=== PATIENT | male | born 1955 | race Caucasian/White ===

== ENCOUNTER 2020-05-29 06:54 | Outpatient (CLI) | payer BC ==
--- NOTE | 2020-05-29 12:14 | RAD ---
EXAM: Chest 2 views: HISTORY: Preoperative radiograph COMPARISON: None. FINDINGS: There is a normal-sized cardiomediastinal silhouette. There is no evidence of consolidation, mass, or pleural effusion. No acute osseous abnormality. IMPRESSION: No evidence of acute cardiopulmonary disease
[2020-05-29 12:48] LABS: #Eosinphils 0.1 10x3/uL (0.0-0.5); #Monocytes 0.5 10x3/uL (0.0-1.1); #Neutrophils 2.6 10x3/uL (1.5-8.4); %Basophils 0.8 % (0.0-2.0); %Eosinophils 1.2 % (0.0-6.0); %Monocytes 9.1 % (0.0-10.0); %Neutrophils 50.7 % (40.0-75.0); Hemoglobin 13.4 g/dL (14.0-18.0); Mean Corpuscular HGB CONC 33.3 G/DL (32.0-36.0); Mean Corpuscular Hemoglobin 32.5 PG (27.0-33.0); Mean Corpuscular Volume 97.6 fl (80.0-100.0); Mean Platelet Volume 9.8 fl (7.4-10.4); Platelet Count 261 10x3/uL (130-400); Red Blood Cell (RBC) Count 4.12 10x6/uL (4.40-5.80)
[2020-05-29 13:08] LABS: Anion Gap 12 mmol/L (10-20); BUN (Urea Nitrogen) 16 mg/dL (8.4-25.7); Calc. Creatinine Clearance 0 mL/min (70-130); Calcium 9.1 mg/dL (7.8-10.44); Carbon Dioxide 29 mmol/L (23-31); Chloride 105 mmol/L (98-107); Glucose 99 mg/dL (80-115); Potassium 4.6 mmol/L (3.5-5.1); Sodium 141 mmol/L (136-145)
[2020-05-30 09:25] LABS: SARS-CoV-2 MS2 Positive; SARS-CoV-2 N Gene Negative; SARS-CoV-2 S Gene Negative; SARS-CoV-2 by NAA Not Detected (NotDetected); SARS-CoV-2 orf1ab Negative
--- NOTE | 2020-05-31 07:01 | EKG ---
Test Reason : Blood Pressure : / mmHG Vent. Rate : 054 BPM Atrial Rate : 054 BPM P-R Int : 190 ms QRS Dur : 100 ms QT Int : 392 ms P-R-T Axes : 071 066 064 degrees QTc Int : 371 ms Sinus bradycardia Septal infarct , age undetermined Abnormal ECG No previous ECGs available Confirmed by DEBORAH PRASAD MD ([id number]) on 05/31/2020 7:00:55 AM Referred By: ANSON Confirmed By:DEBORAH PRASAD MD
== END 2020-05-29 06:55 | disposition home or self-care (01) ==
LOC: LABBT 06:54
PROVIDERS: ATTEND Specialist
DX: Z01.818 Encounter for other preprocedural examination (principal); Z20.828 Contact with and (suspected) exposure to other viral communicable diseases; K40.90 Unilateral inguinal hernia, without obstruction or gangrene, not specified as recurrent
CPT/HCPCS: 71046; 80048; 85025; 87635; 93005; 93010; U0003

== ENCOUNTER 2020-06-01 08:18 | Day surgery (SDC) | payer BC ==
[2020-05-31 16:06] VITALS: BMI 22.1
[2020-06-01] MEDS ORDERED: Ketorolac Tromethamine 30 MG/ML VIAL ONE (08:38)
[2020-06-01] MEDS ORDERED: Acetaminophen 500 MG TAB ONE (08:38)
[2020-06-01] MEDS ORDERED: Glycopyrrolate 0.2 MG/ML 5 ML SYRINGE ONE (09:53)
[2020-06-01] MEDS ORDERED: PROPOFOL 200 MG/20 ML VIAL ONE (09:53)
[2020-06-01] MEDS ORDERED: Ondansetron PF 4 MG/2 ML Vial ONE (09:53)
[2020-06-01] MEDS ORDERED: ePHEDrine 50 MG/ML VIAL ONE (09:53)
[2020-06-01] MEDS ORDERED: Dexamethasone 20 MG/5 ML VIAL ONE (09:53)
[2020-06-01] MEDS ORDERED: Rocuronium Bromide 10 MG/ML (10ML VIAL) ONE (09:53)
[2020-06-01] MEDS ORDERED: Lidocaine 1% PF 5 ML VIAL ONE (09:53)
[2020-06-01] MEDS ORDERED: Fentanyl 100 MCG/2 ML VIAL ONE (12:03)
[2020-06-01] MEDS ORDERED: Lidocaine 1% w/Epinephrine 1:100K 20 ML VIAL ONE (13:02)
[2020-06-01] MEDS ORDERED: Bupivacaine 0.25% HCL 30 ML VIAL ONE (13:02)
--- NOTE | 2020-06-02 13:36 | OP ---
DATE OF PROCEDURE: 06/01/2020 PREOPERATIVE DIAGNOSIS: Large right inguinal hernia. POSTOPERATIVE DIAGNOSIS: Large right inguinal hernia, indirect. PROCEDURE PERFORMED: Robotic right inguinal hernia repair with large 3DMax mesh patch. ANESTHESIA: General endotracheal. INDICATIONS FOR PROCEDURE: The patient is a 64-year-old white male. Four years ago, I performed a robotic left inguinal hernia repair from which he had an uneventful recovery. He returns at this time with an obvious right inguinal hernia. He was taken the operating room at this time for repair. DESCRIPTION OF OPERATION: Informed consent was obtained. Patient was taken to the operating room, where general endotracheal anesthesia obtained, patient in supine position. Tucker catheter was placed, abdomen was prepped with ChloraPrep and draped in sterile fashion. Local anesthetic was infiltrated using 0.25% Marcaine with epinephrine. The 3 prior laparoscopic incisions utilized at the last operation were reopened after locally anesthetizing them. Veress needle was passed through the supraumbilical incision and pneumoperitoneum was established using carbon dioxide up to a pressure of 15 mmHg. An 11 mm balloon-tipped trocar port was passed through this incision. Robotic camera was passed through the port and the 2 additional 8 mm ports were placed. The robot was docked to the 3 ports and the camera and the operation was continued from the robotic console. The left inguinal area was inspected and there was found to be no evidence of recurrent or persistent hernia. The mesh that had been placed previously was visualized through the peritoneum. In the right inguinal region, there was noted to be an obvious indirect inguinal hernia. A transverse peritoneal incision was created several centimeters superior to the hernia defect. Dissection was carried inferiorly in the preperitoneal space. The pubic tubercle and Rom's ligament were dissected on the medial aspect. The iliopubic tract was dissected on the lateral aspect. In the central portion of the dissection, the hernia sac was carefully dissected away from the cord structures and the peritoneum was widely mobilized off the underlying cord structures and the testicular vessels. Once the peritoneum had been adequately mobilized, a large 3DMax mesh patch was obtained and placed in the preperitoneal space where it was secured in place with 2 interrupted sutures of 2-0 Vicryl. One of these was placed to the pubic tubercle and one was placed to the anterior abdominal wall just lateral to the epigastric vessels. The peritoneum was then closed with a running suture of 3-0 Stratafix. There had been essentially no blood loss during the course of the operation. There were no complications. The fascial defect at the supraumbilical port site was closed with 0 Vicryl suture using a GraNee needle. All ports and instruments were removed under direct vision. Pneumoperitoneum was carefully evacuated. Additional local anesthetic was infiltrated at each port site. Skin edges approximated with 4-0 Monocryl subcuticular suture. Dermabond was placed externally. There were no complications. The patient tolerated the procedure well and was taken to recovery in stable condition. Job ID: [id number]
== END 2020-06-01 20:50 | disposition home or self-care (01) ==
LOC: SDC 08:18
PROVIDERS: ATTEND Specialist
PROC: 0YU54JZ Supplement Right Inguinal Region with Synthetic Substitute, Percutaneous Endoscopic Approach (ICD-10-PCS; principal; 2020-06-01)
DX: K40.90 Unilateral inguinal hernia, without obstruction or gangrene, not specified as recurrent (principal); E78.5 Hyperlipidemia, unspecified; Z79.899 Other long term (current) drug therapy; Z87.891 Personal history of nicotine dependence
CPT/HCPCS: C1781; J0690; J1100; J1885; J2405; J2704; J3010; J3490; S0020